=== PATIENT | male | born 1985 | race Caucasian/White ===

== ENCOUNTER 2018-09-13 22:28 | Observation (INO) ==
[2018-09-13 23:51] LABS: BASO# 0.04 X1000 (0.0-0.2); BASO% 0.3 % (0.0-0.8); EOS# 0.32 X1000 (0.0-0.7); EOS% 2.3 % (0.0-10.0); HEMATOCRIT 38.6 % (42.0-52.0); HEMOGLOBIN 13.4 g/dL (14.0-18.0); IMM GRAN# 0.04 X1000 (0.0-0.04); IMM GRAN% 0.3 % (0.0-0.5); LYMPH# 5.75 X1000 (1.2-3.4); LYMPH% 41.2 % (20.5-51.1); MCH 29.8 PG (27-31); MCHC 34.7 g/dL (33-37); MCV 85.8 FL (81-99); MONO# 1.02 X1000 (0.11-0.59); MONO% 7.3 % (1.7-9.3); MPV 9.5 FL (7.4-10.4); NEUT# 6.79 X1000 (1.4-6.5); NEUT% 48.6 % (42.2-75.2); PLT 302 X1000 (130-400); RDW 12.8 % (11.5-14.5); WBC 13.96 X1000 (4.8-10.8)
[2018-09-14 00:16] LABS: AGAP 12; ALBUMIN 4.2 g/dL (3.5-5.0); ALKALINE PHOSPHATASE 66 U/L (32-122); BUN 23 mg/dL (8-22); CALCIUM 8.3 mg/dL (8.8-10.2); CHLORIDE 103 mmol/L (98-107); COSMO 281; CREATININE 0.9 mg/dL (0.7-1.2); ESTIMATED GFR > 60; GLUCOSE 87 mg/dL (70-104); GOT 17 U/L (10-34); GPT 13 U/L (10-44); POTASSIUM 3.8 mmol/L (3.5-5.1); SODIUM 139 mmol/L (136-145); TCO2 25 mmol/L (25-35); TOTAL PROTEIN 6.7 g/dL (6.3-8.3)
--- NOTE | 2018-09-14 02:31 | PROVIDER DOCUMENTATION ---
This chart was entered by Georgia Gates Scribe, acting as scribe for Smiley Ludwig MD. HPI-Rash/Wound/ReCheck - General Chief Complaint: Extremity Injury Time Seen by Provider: 09/13/18 23:13 Source: patient Allergies/Adverse Reactions: Allergies Allergy/AdvReac Type Severity Reaction Status Date / Time Penicillins Allergy Severe ANAPHYLAXIS Verified 07/01/17 19:58 nitrofurantoin Allergy Unknown Verified 09/25/17 11:37 [From Macrobid] Sulfa (Sulfonamide Allergy RASH Verified 09/24/17 12:33 Antibiotics) sulfamethoxazole Allergy Unknown Verified 09/27/17 22:09 [From Bactrim] trimethoprim [From Bactrim] Allergy Unknown Verified 09/27/17 22:09 Home Medications: Home Medication List Medication Instructions Recorded Confirmed Last Taken Type Buprenorphine HCl [Subutex] 8 mg SL BID 03/28/17 07/01/17 Unknown History Ibuprofen [Motrin] 800 mg PO Q8H PRN PRN #20 tab 09/09/17 Unknown Rx Methocarbamol [Robaxin-750] 750 mg PO Q6H PRN #20 tab 09/09/17 Unknown Rx Omeprazole 20 mg PO DAILY #20 tablet. 09/09/17 Unknown Rx Phenazopyridine HCl [Pyridium] 100 mg PO TID #6 tab 09/23/17 Unknown Rx Sulfamethoxazole/Trimethoprim 1 ea PO BID #10 tab 09/23/17 Unknown Rx [Bactrim Ds Tablet] Hydroxyzine Pamoate [Vistaril] 25 mg PO Q6-8H PRN PRN #20 cap 09/24/17 Unknown Rx Nitrofurantoin Monohyd/M-Cryst 100 mg PO BID #14 cap 09/24/17 Unknown Rx [Macrobid 100 mg Capsule] Nystatin Susp [Mycostatin Susp] 5 ml PO 4XDAY 7 Days #1 bottle 09/24/17 Unknown Rx Omeprazole [Prilosec] 20 mg PO DAILY@0700 #30 cap 02/02/18 Unknown Rx Hydroxyzine [Atarax] 50 mg PO TID PRN 10 Days #25 tab 05/25/18 Unknown Rx - History of Present Illness-Dermatology Nature of Presenting Problem: 33 y/o male presents to ED with wound to L foot onset just prior to arrival. Pt reports he dropped a knife on his foot while cutting cheese. Pt is alert and oriented. Location: reports: feet (L) Quality: reports: painful Severity: reports: moderate Onset/Duration: reports: just prior to arrival Timing: reports: still present Context/Associated Symptoms: reports: laceration Identifiable cause?: No Exposure: reports: other (knife) Locality of [place]: Home Similar Symptoms Previously?: No Recently seen or treated by another doctor?: No Review of Systems - Adult - REVIEW OF SYSTEMS - ADULT Constitutional: denies: chills, fever Eyes: reports: no symptoms reported Ears, Nose, Mouth & Throat: reports: no symptoms reported Cardiovascular: denies: chest pain, palpitations Respiratory: denies: cough, shortness of breath Gastrointestinal: denies: abdominal pain, diarrhea, nausea, vomiting Genitourinary: reports: no symptoms reported Musculoskeletal: denies: back pain, joint pain Integumentary: reports: other (wound to L foot). denies: hives Neurological: denies: dizziness/vertigo, seizure Psychiatric: reports: no symptoms reported Endocrine: reports: no symptoms reported Hematologic/Lymphatic: reports: no symptoms reported Allergic/Immunologic: reports: no symptoms reported All Other Systems: Reviewed and Negative Past History - Adult - PAST MEDICAL HISTORY-ADULT Review of Records: reports: Old Records Reviewed, Nursing Assessment Review, Medications Reviewed Major Childhood Illnesses: reports: denies history Cardiovascular: reports: HTN, murmur Respiratory: reports: asthma, sleep apnea Gastrointestinal: reports: diverticulosis, GERD, other (hernia) Obstetrical/Gynecological: reports: denies history Genitourinary: reports: denies history Musculoskeletal: reports: denies history Neurological: reports: Seizures/Epilepsy Psychiatric: reports: bipolar, ptsd, other (panic attacks) Endocrine/Immune: reports: denies history Other Conditions: reports: other (3 hernias) - PRIOR SURGERIES/PROCEDURES Surgical/Procedure History: reports: back/neck (tumor removal) - IMMUNIZATION STATUS Childhood Immunizations: See Nurse Assessment Flu Vaccine: See Nurse Assessment - FAMILY HISTORY Family History: reviewed, not pertinent - SOCIAL HISTORY Smoking: quit greater than 1 year, chew Provider spent 3-5 mins advising pt. on dangers of tobacco.: Discussed manners to quit use, and f/u contacts for add'l counseling. Substance Use: none presently/history of abuse Alcohol Use Frequency: sober (former use) Living Situation: family Physical Exam-General - PHYSICAL EXAM-ADULT Initial Vital Signs Reviewed: Yes - CONSTITUTIONAL General Appearance: appears well, alert, no apparent distress - EYES Eyes: PERRL/EOMI, pink conjunctivae - HEAD, EARS, NOSE, MOUTH & THROAT HENMT: normocephalic/atraumatic, moist mucous membranes, normal ENT inspection - NECK Neck: non-tender, full range of motion - RESPIRATORY Respiratory: chest non-tender, lungs clear, normal breath sounds - CARDIOVASCULAR Cardiovascular: normal peripheral pulses, regular rate, rhythm - GASTROINTESTINAL (ABDOMEN) Abdominal Exam: normal bowel sounds, non tender, soft - MUSCULOSKELETAL Back Exam: normal inspection, no CVA tenderness Extremity: normal range of motion, non-tender, normal gait, normal capillary refill, other (less than 1 inch clean/deep laceration with active squirting bleeding). negative: pulse deficit - SKIN Integumentary: normal color, warm/dry, other (less than 1 inch clean/deep laceration with active squirting bleeding) - NEUROLOGIC Neurologic: grossly normal - PSYCHIATRIC Psych/Mental Status: normal mood/affect, normal thought content, normal thought process Progress - PLAN OF CARE/RESULTS Progress/Plan/Lab Results: Vital Signs - 8 hr 09/13/18 23:00 Temperature 98.6 F Pulse Rate 100 H Respiratory Rate 20 Blood Pressure 115/75 O2 Sat by Pulse Oximetry 100 Laboratory Results - last 24 hr 09/13/18 09/13/18 23:31 23:31 WBC 13.96 H RBC 4.50 L Hgb 13.4 L Hct 38.6 L MCV 85.8 MCH 29.8 MCHC 34.7 RDW Std Deviation 12.8 Plt Count 302 MPV 9.5 Immature Gran % (Auto) 0.3 Neut % (Auto) 48.6 Lymph % (Auto) 41.2 Sunflower % (Auto) 7.3 Eos % (Auto) 2.3 Baso % (Auto) 0.3 Immature Gran # (Auto) 0.04 Neut # (Auto) 6.79 H Lymph # (Auto) 5.75 H Sunflower # (Auto) 1.02 H Eos # (Auto) 0.32 Baso # (Auto) 0.04 Sodium 139 Potassium 3.8 Chloride 103 Carbon Dioxide 25 Anion Gap 12 BUN 23 H Creatinine 0.9 Estimated GFR/1.73 m2 > 60 BUN/Creatinine Ratio 26 Glucose 87 Calculated Osmolality 281 Calcium 8.3 L Total Bilirubin 0.60 AST 17 ALT 13 Alkaline Phosphatase 66 Total Protein 6.7 Albumin 4.2 Globulin 3.0 Albumin/Globulin Ratio 2.0 Orders Category Date Time Status Admit - [facility] Routine AdmDCTranf 09/14/18 02:27 Active CBC WITH ELECTRONIC DIFF [HEME] Stat Lab 09/13/18 23:31 Completed CMP [COMPREHENSIVE METABOLIC PANEL] [CHEM] Stat Lab 09/13/18 23:31 Completed Transfer/Admit Order [TRANSFER] Routine Transfer 09/14/18 02:28 Ordered BLEEDING CONTROLLED WITH PRESSURE. WILL APPLY PRESSURE DRESSING AND ADMIT FOR SURGICAL EVAL IN THE MORNING Result Diagrams: 09/13/18 23:31 09/13/18 23:31 - CONSULTS/PCP/HOSPITALIST Notification #1 *Consult/PCP/Hospitalist*: Dr. Hsu Time Discussed: 23:48 Reason/Comments: deep laceration Consult Disposition: other (Apply pressure for 10 more minutes. If not bleeding, he will repair in the morning. If it is bleeding, he will see in ED.) #2 Consult: DR HSU Time Discussed: 02:20 Consult Disposition: Admit Departure - Departure Date of Disposition Decision: 09/14/18 Time of Disposition Decision: 02:20 DIAGNOSIS: Laceration of left dorsalis pedis artery, Laceration of foot with complication Disposition: ADMITTED INPATIENT 09 Certified Medical Emergency: Emergent Condition: Stable Referrals and Follow-Ups: Vickie Arenas MD [Primary Care Provider] - - Critical Care Note This patient required my direct & personal management of CC.: No Attestation - Physician/ PATRIA Attestation Patient care was provided by Advanced Practice Provider:: No The physician spent face to face time with patient:: Yes Advanced Practice Provider documentation review:: Supervising physician onsite and consulted in the evaluation and care of this patient. The physician did have a face to face encounter with the patient. This chart was documented by the indicated scribe, (Georgia Gates Scribe) and accurately reflects the services I performed and decisions made by me, Smiley Ludwig MD, as attested by the provider's signature.
[2018-09-14 04:09] LABS: UR AMPHETAMINES QUAL NONE DETECTED (NONE DETECT); UR BARBITUATES QUAL NONE DETECTED (NONE DETECT); UR BENZODIAZEPIN QUAL PRESUMPTIVE POSITIVE (NONE DETECT); UR CANNABINOIDS QUAL PRESUMPTIVE POSITIVE (NONE DETECT); UR COCAINE QUAL NONE DETECTED (NONE DETECT); UR METHADONE QUAL NONE DETECTED (NONE DETECT); UR METHAMPHETAMINE QUAL NONE DETECTED (NONE DETECT); UR OPIATES QUAL NONE DETECTED (NONE DETECT); UR OXYCODONE QUAL NONE DETECTED (NONE DETECT); UR PCP QUAL NONE DETECTED (NONE DETECT); UR PROPOXYPHENE QUAL NONE DETECTED (NONE DETECT); UR TCA QUAL NONE DETECTED (NONE DETECT)
[2018-09-14] MEDS ORDERED: NORCO-7.5 PO ONE (06:36)
[2018-09-14] MEDS ORDERED: DIPHTHERIA/TETANUS ADULT IM ONE (06:42)
[2018-09-14 07:31] VITALS: BP 119/81
--- NOTE | 2018-09-14 08:35 | HISTORY AND PHYSICAL ---
DATE: 09/14/2018 HISTORY OF PRESENT ILLNESS: This 33-year-old gentleman who dropped a knife while he was cutting up some food this afternoon and he sustained a puncture laceration to the dorsal aspect of his left foot. Apparently there was some brisk bleeding noted in the ER, but this resolved with brief pressure and a dressing was applied. He was admitted for observation to insure no recurrent bleeding. He has not had a tetanus shot in many years. We have ordered that for him today. Otherwise, he has some discomfort locally, but no paresthesias or weakness in his toes distally. His toes are well perfused. MEDICAL HISTORY: He has got a psychiatric history including history of drug abuse. He has had spinal compressive type symptoms requiring operations, which has left him with some chronic pain from this. He also has some psychiatric history based off review of his records. SURGICAL HISTORY: No vascular or orthopedic procedures other than the lower lumbar spine operation. SOCIAL HISTORY: Smokes occasionally. 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 He does take benzodiazepines and smokes marijuana based off of his urine drug screen. FAMILY HISTORY: Reviewed and noncontributory. PHYSICAL EXAMINATION: General: He is alert, in no acute distress. Vitals: Temperature 97.8 degrees, pulse 79, blood pressure 119/81, O2 saturation 100 percent. General: He is alert. HEENT: No scleral icterus. No cervical mass. Cardiovascular: Normal rate. Pulmonary: No increased work of breathing. Abdomen: Soft. Integument: Warm and dry. Psychiatric: Appropriate affect, but speech is somewhat pressured. He talks about pain medicine a lot. Neurologic: He has some pain limited range of motion of his toes, but overall it is intact with normal sensation. Musculoskeletal: There is an approximately 8 to 9 mm laceration to the dorsal aspect of his foot with some ecchymosis but no hematoma. There was no active bleeding noted. No cellulitis. Peripheral Vascular: He has palpable dorsalis pedis, posterior tibial pulses. Normal capillary refills in his toes distally. LABS: White count 13, hematocrit 38, platelets 302,000. Creatinine 0.9. UDS positive for benzodiazepines and cannabinoids. IMAGING: No imaging. ASSESSMENT AND PLAN: A 33-year-old gentleman with a laceration dorsal aspect of his foot. Bleeding is stopped now for several hours. His dressing has just a scant amount of spotting on it and there is no active bleeding noted at the wound. I did reapproximate the wound loosely with Steri-Strips and there was good approximation and it is a clean laceration. I do not see any signs of infection or hematoma or neurovascular injury. I have encouraged him to keep the foot elevated, stay off of it for the next week. I want to see him back in my office in 1 week. I have given him [place] before he left but I recommended Tylenol and Motrin for pain control at home and we have administered a tetanus booster before he left. Discussed in detail the anticipated recovery. He understands and consents, wants to go home and I agree with this. cc: Stephania Oneill MD
== END 2018-09-14 08:03 | disposition home or self-care (01) ==
LOC: 4N 22:28 → P.ED 22:28 → 4N 09-14 04:40
PROVIDERS: ADMIT Surgery; ATTEND Surgery
CPT/HCPCS: 80053; 80104; 80301; 80305; 85025; 90714; 99285; A9270; G0431; G0434; G0477